=== PATIENT | female | born 1995 | race Caucasian/White ===

== ENCOUNTER 2017-08-03 13:56 | Emergency (ER) | payer MEDICAID, OTHER ==
[~2017-08-03] VITALS: Ht 162.6 cm; Wt 68.0 kg
[~2017-08-03 13:56] MED LIST: MULTCAP45 PO
[2017-08-03 15:31] VITALS: BP 123/77
== END 2017-08-03 15:51 | disposition home or self-care (01) ==
LOC: ER 14:03
DX: S61.011A Laceration without foreign body of right thumb without damage to nail, initial encounter (principal); W25.XXXA Contact with sharp glass, initial encounter; Y93.89 Activity, other specified; Y99.8 Other external cause status; Y92.89 Other specified places as the place of occurrence of the external cause
CPT/HCPCS: 12001

== ENCOUNTER 2017-08-16 10:40 | Emergency (ER) | payer MEDICAID ==
[~2017-08-16] VITALS: Ht 162.6 cm; Wt 74.8 kg
[2017-08-16 10:51] VITALS: BP 124/83
== END 2017-08-16 12:02 | disposition home or self-care (01) ==
LOC: ER 10:40
DX: S61.011D Laceration without foreign body of right thumb without damage to nail, subsequent encounter (principal)

== ENCOUNTER 2017-09-12 17:26 | Observation (INO) | payer MEDICAID ==
[~2017-09-12] VITALS: Ht 162.6 cm; Wt 65.8 kg
[2017-09-13] MEDS ORDERED: PREN27TA7 OR (05:02)
== END 2017-09-12 19:15 | disposition home or self-care (01) | DRG 566 ==
LOC: LDRP 17:26
PROVIDERS: ADMIT Obstetrics & Gynecology; ATTEND Obstetrics & Gynecology
DX: O99.513 Diseases of the respiratory system complicating pregnancy, third trimester (principal); O26.893 Other specified pregnancy related conditions, third trimester; R06.89 Other abnormalities of breathing; R10.9 Unspecified abdominal pain; Z3A.32 32 weeks gestation of pregnancy
CPT/HCPCS: 59025; 80307; 81002; G0378

== ENCOUNTER 2017-11-02 13:00 | Observation (INO) | payer SELFPAY ==
[~2017-11-02 13:00] MED LIST changes: -MULTCAP45 PO; +PREN27TA7 OR
== END 2017-11-02 14:25 | disposition home or self-care (01) | DRG 781 ==
LOC: LDRP 13:00
PROVIDERS: ADMIT Obstetrics & Gynecology; ATTEND Obstetrics & Gynecology
DX: O62.9 Abnormality of forces of labor, unspecified (principal); O26.893 Other specified pregnancy related conditions, third trimester; R10.9 Unspecified abdominal pain; R10.2 Pelvic and perineal pain; O48.0 Post-term pregnancy; Z3A.40 40 weeks gestation of pregnancy
CPT/HCPCS: 59025; 76818; 81002; G0378

== ENCOUNTER 2017-11-04 14:00 | Observation (INO) | payer SELFPAY | END 2017-11-04 15:35 | disposition home or self-care (01) | DRG 782 | LOC: LDRP 14:00 | PROVIDERS: ADMIT Specialist; ATTEND Specialist | DX: O62.9 Abnormality of forces of labor, unspecified (principal); O48.0 Post-term pregnancy; Z3A.40 40 weeks gestation of pregnancy | CPT/HCPCS: 59025; 76818; 81002; G0378 ==

== ENCOUNTER 2017-11-06 15:30 | Observation (INO) | payer SELFPAY ==
[~2017-11-06] VITALS: Ht 162.6 cm; Wt 81.6 kg
== END 2017-11-06 16:35 | disposition home or self-care (01) | DRG 782 ==
LOC: LDRP 15:30
PROVIDERS: ADMIT Obstetrics & Gynecology; ATTEND Obstetrics & Gynecology
DX: O48.0 Post-term pregnancy (principal); Z3A.40 40 weeks gestation of pregnancy
CPT/HCPCS: 59025; 76818; 81002; G0378

== ENCOUNTER 2017-11-07 15:50 | Inpatient (IN) | payer SELFPAY ==
[~2017-11-07] VITALS: Ht 162.6 cm; Wt 81.6 kg
[2017-11-07] MEDS ORDERED: LACTATED RINGER'S 1,000 ML IV SCH ×2 (16:48)
[2017-11-07] MEDS ORDERED: LACT. RINGERS/OXYTOCIN 20UNITS 1,000 ML IV SCH (16:48)
[2017-11-07] MEDS ORDERED: NALBUPHINE HCL 10 MG/1ml INJECTION IV PRN (17:00)
[2017-11-07] MEDS ORDERED: DERMOPLAST 60ML BOTTLE TOP PRN (17:00)
[2017-11-07] MEDS ORDERED: LIDOCAINE 2%HCL (LOCAL ANESTH.) INJ 20ML MDV IJ ONE (17:00)
[2017-11-07] MEDS ORDERED: PHISODERM TOP SOLN 240ML BTL TOP PRN (17:00)
[2017-11-07] MEDS ORDERED: WITCH HAZEL-GLYCERIN PAD TOP PRN (17:00)
[2017-11-07] MEDS ORDERED: BUTORPHANOL TARTRATE 2 MG/1 ML VIAL IV PRN (17:00)
[2017-11-07] MEDS ORDERED: PENICILLIN G POT 5MIL/D5 50ML 50 ML IV ONE (17:15)
[2017-11-07 18:14] LABS: Urine Bacteria FEW /hpf (None Seen); Urine Blood TRACE /uL (Negative); Urine Specific Gravity 1.007 (1.001-1.035); Urine WBC 21 /hpf (0 - 5)
[2017-11-07 18:16] LABS: Eosinophils # (auto) 0.1 uL; Eosinophils % (auto) 0.6 % (0.0-7.0); Lymphocytes # (auto) 1.6 uL; Monocytes # (auto) 0.5 uL; Monocytes % (auto) 5.4 % (0.0-12.0); Platelet Count (auto) 227 10^3/uL (140-450)
[2017-11-07 18:18] LABS: Basophils # (auto) 0 uL; Basophils % (auto) 0.5 % (0.0-2.0); Hematocrit 29.9 % (36.0-46.0); Hemoglobin 9.3 g/dL (12.2-16.2); Lymphocytes % (auto) 16.2 % (10.0-50.0); Mean Corpuscular Hemoglobin 21.9 pg (28.0-32.0); Mean Corpuscular Hgb Conc. 31.1 g/dL (32.0-36.0); Mean Corpuscular Volume 70.2 fL (80.0-100.0); Neutrophils # (auto) 7.9 uL; Neutrophils % (auto) 77.3 % (37.0-80.0); Nucleated Red Blood Cells % 0.1 %; Red Blood Cells 4.26 10^6/uL (4.0-5.20); Red Cell Distribution Width 19.2 % (11.8-14.3); White Blood Cell 10.2 10^3/uL (4.4-10.8)
[2017-11-07 18:23] LABS: Alcohol, Urine < 3.0 mg/dL (0-5); Amphetamine Screen, Urine NEGATIVE (NEGATIVE); Barbiturate Scree,Urine NEGATIVE (NEGATIVE); Benzodiazephine Screen, Urine NEGATIVE (NEGATIVE); Cannabinoid Screen, Urine NEGATIVE (NEGATIVE); Cocaine Screen, Urine NEGATIVE (NEGATIVE); Opiate Scree,Urine NEGATIVE (NEGATIVE); Phencyclidine Screen, Urine NEGATIVE (NEGATIVE)
[2017-11-07 18:24] LABS: Albumin 2.6 g/dL (3.4-5.0); BUN/Creatinine Ratio 8.8; Bilirubin, Total 0.6 mg/dL (0.2-1.0); Calcium 8.3 mg/dL (8.5-10.1); Potassium 3.4 mmol/L (3.5-5.1); Total Protein 7.8 g/dL (6.4-8.2)
[2017-11-07 18:25] LABS: INR 0.84 (0.9-1.15); Partial Thromboplastin Time 25.4 sec (22.64-33.71); Prothrombin Time 9.1 sec (9.37-12.3)
[2017-11-07] MEDS ORDERED: ePHEDrine SULFATE 50 MG/ML AMP IV ONE (19:45)
[2017-11-07] MEDS ORDERED: NALOXONE HCL 0.4 MG/ML VIAL IV ONE (19:45)
[2017-11-07] MEDS ORDERED: fentaNYL CITRATE 100 MCG/2 ML VL IV ONE (19:45)
[2017-11-07] MEDS ORDERED: LIDOCAINE HCL 2 %PF INJ 10ML AMP IJ ONE ×2 (19:45→19:48)
[2017-11-07] MEDS ORDERED: fentaNYL W ROPIVACAINE 150 ML EPI SCH (19:45)
[2017-11-07] MEDS ORDERED: fentaNYL CITRATE 100 MCG/2 ML VL ONE (19:47)
[2017-11-07] MEDS ORDERED: ePHEDrine SULFATE 50 MG/ML AMP ONE (19:48)
[2017-11-07] MEDS ORDERED: METHYLERGONOVINE MALEATE 0.2 MG/ML AMP IM PRN (20:00)
[2017-11-07] MEDS ORDERED: PENICILLIN G POTASSIUM 2,500,000 UNITS in D5W 5% 50 ML IV SCH (21:15)
[2017-11-08] MEDS ORDERED: ACETAMINOPHEN 325 MG TAB PO PRN
[2017-11-08] MEDS ORDERED: LACT. RINGERS/OXYTOCIN 20UNITS 1,000 ML IV SCH (00:46)
[2017-11-08 04:00] VITALS: BP 112/59
[2017-11-08 07:31] VITALS: BP 116/63
[2017-11-08 11:42] VITALS: BP 113/70
[2017-11-08] MEDS: IBUPROFEN 600 MG TAB PO PRN (13:10)
[2017-11-08 15:44] VITALS: BP 122/67
[2017-11-08] MEDS ORDERED: TETANUS-DIPTH-ACEL PERTUSSIS 0.5ML SYRG IM ONE (16:15)
[2017-11-08 20:10] VITALS: BP 121/75
[2017-11-09] VITALS: BP 127/66
[2017-11-09 03:06] LABS: RPR Non Reactive (Non Reactive)
[2017-11-09 03:30] VITALS: BP 116/59
[2017-11-09] MEDS: IBUPROFEN 600 MG TAB PO PRN ×2 (03:30→09:45)
[2017-11-09 07:30] VITALS: BP 114/62
== END 2017-11-09 10:45 | disposition home or self-care (01) | DRG 775 ==
LOC: LDRP 15:50
PROVIDERS: ADMIT Specialist; ATTEND Specialist
PROC: 10E0XZZ Delivery of Products of Conception, External Approach (ICD-10-PCS; principal; 2017-11-07)
PROC: 00HU33Z Insertion of Infusion Device into Spinal Canal, Percutaneous Approach (ICD-10-PCS; 2017-11-07)
PROC: 3E0R3BZ Introduction of Anesthetic Agent into Spinal Canal, Percutaneous Approach (ICD-10-PCS; 2017-11-07)
PROC: 10907ZC Drainage of Amniotic Fluid, Therapeutic from Products of Conception, Via Natural or Artificial Opening (ICD-10-PCS; 2017-11-07)
PROC: 3E033VJ Introduction of Other Hormone into Peripheral Vein, Percutaneous Approach (ICD-10-PCS; 2017-11-07)
DX: O48.0 Post-term pregnancy (principal); Z23 Encounter for immunization; Z37.0 Single live birth; Z3A.40 40 weeks gestation of pregnancy
CPT/HCPCS: 36415; 51702; 59025; 59409; 62282; 80053; 80307; 81001; 85025; 85610; 85730; 86592; 86703; 86762; 86850; 86900; 86901; 87340; 90472; 94760; 96365; 96366; 96372; J2540; J2590; J3010; J7060

== ENCOUNTER 2018-02-03 18:34 | Emergency (ER) | payer MEDICAID ==
[~2018-02-03] VITALS: Ht 162.6 cm; Wt 63.5 kg
[2018-02-03 19:36] VITALS: BP 124/92
[2018-02-03 20:47] LABS: Basophils # (auto) 0.1 uL; Eosinophils # (auto) 0.1 uL; Lymphocytes # (auto) 1.9 uL; Monocytes # (auto) 0.3 uL; Neutrophils # (auto) 2.4 uL
[2018-02-03 20:48] LABS: Basophils % (auto) 1.3 % (0.0-2.0); Eosinophils % (auto) 1.9 % (0.0-7.0); Hematocrit 38.2 % (36.0-46.0); Hemoglobin 12.6 g/dL (12.2-16.2); Lymphocytes % (auto) 40.1 % (10.0-50.0); Mean Corpuscular Hemoglobin 25.3 pg (28.0-32.0); Mean Corpuscular Hgb Conc. 32.9 g/dL (32.0-36.0); Mean Corpuscular Volume 77.1 fL (80.0-100.0); Monocytes % (auto) 6.4 % (0.0-12.0); Neutrophils % (auto) 50.3 % (37.0-80.0); Platelet Count (auto) 270 10^3/uL (140-450); Red Blood Cells 4.95 10^6/uL (4.0-5.20); Red Cell Distribution Width 18.7 % (11.8-14.3); White Blood Cell 4.7 10^3/uL (4.4-10.8)
[2018-02-03 20:54] LABS: Urine Bacteria NONE SEEN /hpf (None Seen); Urine Blood Negative /uL (Negative); Urine Mucus FEW (None Seen); Urine Specific Gravity 1.029 (1.001-1.035); Urine WBC 5 /hpf (0 - 5)
[2018-02-03 21:02] LABS: Albumin 4.2 g/dL (3.4-5.0); BUN/Creatinine Ratio 11.3; Calcium 9.2 mg/dL (8.5-10.1); Potassium 3.6 mmol/L (3.5-5.1)
[2018-02-03 21:06] LABS: Bilirubin, Total 0.5 mg/dL (0.2-1.0)
== END 2018-02-03 23:24 | disposition left against medical advice (07) ==
LOC: ER 18:34
DX: R10.9 Unspecified abdominal pain (principal); Z53.21 Procedure and treatment not carried out due to patient leaving prior to being seen by health care provider
CPT/HCPCS: 36415; 74176; 80053; 81001; 81025; 85025

== ENCOUNTER 2019-08-23 22:28 | Emergency (ER) | payer MEDICAID ==
[~2019-08-23] VITALS: Ht 162.6 cm; Wt 63.5 kg
[2019-08-24 00:22] VITALS: BP 133/84
[2019-08-24] MEDS ORDERED: DexAMETHasone SOD PHOS 10MG/1ML VIAL INJ IM ONE (01:30)
== END 2019-08-24 02:49 | disposition home or self-care (01) ==
LOC: ER 22:31
DX: J06.9 Acute upper respiratory infection, unspecified (principal)
CPT/HCPCS: 96372; 99283; J1100

== ENCOUNTER 2019-08-29 19:56 | Emergency (ER) | payer MEDICAID ==
[~2019-08-29] VITALS: Ht 162.6 cm; Wt 63.5 kg
[2019-08-29] MEDS ORDERED: cefTRIAXone SOD 1,000 MG VL IM ONE (21:45)
[2019-08-29] MEDS ORDERED: PHENAZOPYRIDINE HCL 100 MG TAB PO ONE (21:45)
[2019-08-29 21:50] VITALS: BP 111/80
== END 2019-08-29 22:20 | disposition home or self-care (01) ==
LOC: ER 20:05
DX: N39.0 Urinary tract infection, site not specified (principal); B95.2 Enterococcus as the cause of diseases classified elsewhere
CPT/HCPCS: 96372; 99283; J0696